=== PATIENT | male | born 1955 | race Caucasian/White ===

== ENCOUNTER 2020-04-23 00:37 | Emergency (ER) | payer OTHER, MEDICARE, SELFPAY ==
[2020-04-23 00:47] VITALS: BP 121/80; PULSE 85; RESP 18; TEMP 36.4; O2SAT 96; BMI 40.7
[2020-04-23 01:15] VITALS: RESP 18; O2SAT 97
[2020-04-23] MEDS: oxyCODONE-APAP 5-325 mg Tablet 2 TAB PO (01:15)
[2020-04-23 01:23] LABS: Basophils % 0.5 %; Eosinophils # 0.1 10^3/uL (0.0-0.8); Eosinophils % 1.5 %; Hematocrit 49.3 % (42.0-52.0); Hemoglobin 14.9 g/dL (11.7-16.6); Lymphocytes # 1.1 10^3/uL (0.8-4.8); Lymphocytes % 13.3 %; Mean Corpuscular HGB Conc 30.2 g/dL (30.0-36.0); Mean Corpuscular Hemoglobin 30.2 pg (28.0-34.0); Mean Corpuscular Volume 99.8 fL (80-94); Mean Platelet Volume 9.8 fL (7.4-10.4); Monocytes # 0.6 10^3/uL (0.2-0.9); Monocytes % 6.5 %; Neutrophils # 6.65 10^3/uL (1.8-7.7); Neutrophils % 77.8 %; Nucleated Red Blood Cells % 0 %; Platelet Count 230 10^3/cmm (130-400); Red Blood Count 4.94 10^6/uL (4.1-5.3); Red Cell Distribution Width 12.1 % (12.1-15.1); White Blood Count 8.6 10^3/uL (4.0-10.0)
[2020-04-23 01:25] VITALS: PULSE 84
--- NOTE | 2020-04-23 01:42 | XRR_ITS ---
PROCEDURE INFORMATION: Exam: XR Left Wrist Exam date and time: 04/23/2020 1:50 AM Age: 64 years old Clinical indication: Pain; Wrist; Left; Additional info: Left wrist pain TECHNIQUE: Imaging protocol: XR Left wrist. Views: 3 or more views. COMPARISON: No relevant prior studies available. FINDINGS: Bones/joints: Normal. Soft tissues: Tiny foreign bodies are seen in the soft tissues. XR/XR wrist LT min 3V* [id number] IMPRESSION: No acute findings.
[2020-04-23 01:46] VITALS: BP 126/85; PULSE 84; RESP 18; O2SAT 94
--- NOTE | 2020-04-23 02:00 | W.ED.EXTPRO ---
HPI - Extremity Problem General: Chief complaint: Extremity Problem,Nontraumatic Stated complaint: wrist pain Time Seen by Provider: 04/23/20 00:47 History of Present Illness: HPI Narrative: 64-year-old male with pain localized to the right wrist for the last 5 days or so. He says it began to hurt, and feel a bit tight or swollen, so he went to get a brace for it. That along with ice, heat, and [id number] medication has not helped much. Is progressively worsened. He was keeping him awake tonight. There is no history of injury. When asked if he has had any other joints do this to him in the past, he states only my toe . MD Complaint: joint swelling and joint pain Onset (ago): day(s) Pain Consistency: constant Location: left and other (Wrist) Quality: stabbing, aching and constant Radiation: none Relieving factors: immobilization Exacerbating factors: range of motion and weight bearing Associated symptoms: Deny chest pain, fever(s), myalgias, rash or short of breath Review of Systems Const: Denies: fever(s) Card: Denies: chest pain GI: Denies: abdominal pain, nausea or vomiting Skin/Breast: Denies: rash Neuro: Denies: numbness in extremities, weakness in extremities or sensory changes Physical Exam Const: COMMON NORMALS: no acute distress, patient oriented x3 and alert GENERAL APPEARANCE: cooperative ORIENTATION/CONSCIOUSNESS: Yes awake, Yes oriented to person, Yes oriented to place and Yes oriented to time Chest: COMMONS NORMALS: normal inspection of the chest Resp: COMMON NORMALS: normal respiratory effort, No retractions, No use of accessory muscles and clear to auscultation bilaterally AUSCULTATION: clear to auscultation bilaterally Cardio: COMMON NORMALS: regular rate, regular rhythm and No murmurs present (Cardio) RATE: regular rate RHYTHM: regular rhythm GI: COMMON NORMALS: Normal to inspection, nondistended, normoactive bowel sounds present Extremity: NARRATIVE EXTREMITY EXAM: Exam the left wrist reveals swelling with joint effusion, tenderness over the dorsum of the wrist joint diffusely. 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 Increased pain with range of motion. No third finger extension pain. Sensation is intact as is capillary refill Neuro: COMMON NORMALS: patient oriented x3 SENSORIUM/ORIENTATION: Yes alert, Yes oriented to person, Yes oriented to place and Yes oriented to time Course Vital Signs: Vital signs: Vital Signs Temperature 97.5 F L 04/23/20 00:47 Pulse Rate 86 04/23/20 03:55 Respiratory Rate 18 04/23/20 03:55 Blood Pressure 122/79 04/23/20 03:55 Pulse Oximetry 97 04/23/20 03:55 MDM - Extremity (Nontraumatic) MDM Narrative: Medical decision making narrative: CRP and sed rate are only minimally elevated. White blood cell count is 8.6. Other laboratory is benign. Wrist x-ray shows a couple of metallic tiny foreign bodies in the superior facial soft tissues with no acute bony or joint findings. The wrist is noncellulitic. The patient does have a history of gout . We will treat him for such, as this is likely an inflammatory arthritis based on clinical presentation. Lab Data: Labs: Lab Results 04/23/20 04/23/20 04/23/20 Range/Units 01:05 01:05 01:36 WBC 8.6 (4.0-10.0) 10^3/ uL RBC 4.94 (4.1-5.3) 10^6/u L Hgb 14.9 (11.7-16.6) g/dL Hct 49.3 (42.0-52.0) % MCV 99.8 H (80-94) fL MCH 30.2 (28.0-34.0) pg MCHC 30.2 (30.0-36.0) g/dL RDW 12.1 (12.1-15.1) % Plt Count 230 (130-400) 10^3/c mm MPV 9.8 (7.4-10.4) fL Neut % (Auto) 77.8 % Lymph % (Auto) 13.3 % [place] % (Auto) 6.5 % Eos % (Auto) 1.5 % Baso % (Auto) 0.5 % Neut # (Auto) 6.65 (1.8-7.7) 10^3/u L Lymph # (Auto) 1.1 (0.8-4.8) 10^3/u L [place] # (Auto) 0.6 (0.2-0.9) 10^3/u L Eos # (Auto) 0.1 (0.0-0.8) 10^3/u L Baso # (Auto) 0.0 (0.0-0.1) 10^3/u L Nucleated RBC % (a uto) 0 % Nucleated RBCs # 0.0 /100WBC ESR 15 H (0-10) mm/hr Sodium Cancelled Potassium Cancelled Chloride Cancelled Carbon Dioxide Cancelled Anion Gap Cancelled BUN Cancelled Creatinine Cancelled GFR Calculation Cancelled Glucose Cancelled Calculated Osmolal ity Cancelled Uric Acid Cancelled Calcium Cancelled Total Bilirubin Cancelled AST Cancelled ALT Cancelled Alkaline Phosphata se Cancelled C-Reactive Protein Cancelled Total Protein Cancelled Albumin Cancelled Globulin Cancelled 04/23/20 Range/Units 02:30 WBC (4.0-10.0) 10^3/ uL RBC (4.1-5.3) 10^6/u L Hgb (11.7-16.6) g/dL Hct (42.0-52.0) % MCV (80-94) fL MCH (28.0-34.0) pg MCHC (30.0-36.0) g/dL RDW (12.1-15.1) % Plt Count (130-400) 10^3/c mm MPV (7.4-10.4) fL Neut % (Auto) % Lymph % (Auto) % [place] % (Auto) % Eos % (Auto) % Baso % (Auto) % Neut # (Auto) (1.8-7.7) 10^3/u L Lymph # (Auto) (0.8-4.8) 10^3/u L [place] # (Auto) (0.2-0.9) 10^3/u L Eos # (Auto) (0.0-0.8) 10^3/u L Baso # (Auto) (0.0-0.1) 10^3/u L Nucleated RBC % (a uto) % Nucleated RBCs # /100WBC ESR (0-10) mm/hr Sodium 134 L Potassium 3.7 Chloride 97 L Carbon Dioxide 27 Anion Gap 13.7 BUN 21 Creatinine 1.0 GFR Calculation 75.0 L Glucose 223 H Calculated Osmolal ity 288 Uric Acid 6.7 Calcium 9.5 Total Bilirubin 0.4 AST 13 ALT 18 Alkaline Phosphata se 84 C-Reactive Protein 9.2 H Total Protein 7.2 Albumin 4.3 Globulin 2.9 Discharge Plan Discharge Patient Disposition: Home Clinical Impression: Arthritis of wrist, left Gout Qualifiers: Gout site: wrist Gout etiology: idiopathic Chronicity: acute Laterality: left Qualified Code(s): M10.032 - Idiopathic gout, left wrist Condition: Stable Prescriptions: [place] 5-325 mg tablet 1 tab PO Q6H Qty: 10 RF: 0 colchicine 0.6 mg capsule 0.6 mg PO BID Qty: 14 RF: 0 Discharge Orders: Discharge ED (Routine); Ordered 04/23/20 Ordered By: Juan David Mccartney Discharge Diet: Usual diet Discharge Activity: Increase activity as tolerated Patient Instructions: Acute Gouty Arthritis (ED) Activity Restrictions/Additional Instructions: Return for worsening pain despite treatment, significant numbness to the hands. Fever greater than 100, any other concerning symptoms. See your doctor in 4 to 5 days. Medication as directed. 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
[2020-04-23 02:31] LABS: Erythrocyte Sedimentation Rate 15 mm/hr (0-10)
[2020-04-23 03:03] VITALS: BP 122/79; O2SAT 97
[2020-04-23 03:13] LABS: Alanine Aminotransferase 18 U/L (0-41); Albumin Level 4.3 g/dL (3.5-5.2); Alkaline Phosphatase 84 IU/L (40-130); Anion Gap 13.7 (5-19); Aspartate Amino Transferase 13 U/L (0-40); Blood Urea Nitrogen 21 mg/dL (8-23); C Reactive Protein 9.2 mg/L (0.0-4.9); Calcium 9.5 mg/dL (8.5-10.5); Carbon Dioxide 27 mmol/L (22-29); Chloride 97 mmol/L (98-107); Globulin 2.9 g/dL (1.3-4.6); Glucose 223 mg/dL (65-115); Osmolality Calculated 288 mOsm/kg (285-295); Potassium 3.7 mmol/L (3.5-5.1); Sodium 134 mmol/L (136-145); Total Bilirubin 0.4 mg/dL (0.15-1.2); Total Protein 7.2 g/dL (6.6-8.7); Uric Acid 6.7 mg/dL (3.4-7.0)
[2020-04-23] MEDS: dexamethasone 4 mg Tablet 10 MG PO (03:54)
[2020-04-23 03:55] VITALS: BP 122/79; PULSE 86; RESP 18; O2SAT 97
== END 2020-04-23 03:50 | disposition home or self-care (01) ==
PROVIDERS: Emergency Provider Emergency Medicine
DX: M13.832 Other specified arthritis, left wrist (principal); M10.032 Idiopathic gout, left wrist
CPT/HCPCS: 12345; 36415; 73110; 80053; 84550; 85025; 85651; 86140; 99281; 99283; J8540

== ENCOUNTER 2021-09-07 09:39 | Outpatient (CLI) | payer MEDICARE, SELFPAY ==
--- NOTE | 2021-09-07 09:51 | CT_ITS ---
WS: [id number] CT ABDOMEN CONTRAST TECHNIQUE: Contrast enhanced CT of the abdomen with coronal and sagittal reformatted images. CLINICAL INFORMATION: ELEVATED AMYLASE LIPASE COMPARISON: None. DLP: 972.[address] scans at [facility] use at least one of these dose optimization techniques: automated e xposure control; mA and/or kV adjustment per patient size (includes targeted exams where dose is matc hed to clinical indication); or iterative reconstruction. FINDINGS: Lung bases are well aerated. Normal noncontrast liver. A few tiny low-attenuation lesions in the live r likely hepatic cysts but some too small to definitively characterize. Gallbladder appears normal. A drenal glands are normal. Normal renal parenchymal enhancement. No hydronephrosis. Bilateral renal cy sts largest in the LEFT measuring 2.6 CM. Both visualized ureters are decompressed. Fat-containing um bilical hernia. Normal caliber abdominal aorta. Mild aortic calcification. Pancreas is normal in appearance. No signi ficant surrounding inflammatory stranding or peripancreatic edema. Normal pancreatic duct. Moderate spondylitic changes lumbar spine with slight retrolisthesis L3 on L4. Disc space narrowing w orse at L3-L4 and L4-L5. Sigmoid diverticulosis. CT/CT abdomen w con* [id number] IMPRESSION: 1. Pancreatic parenchymal enhancement appears normal. No significant inflammat ory stranding or peripancreatic edema. 2. No peripancreatic fluid collections. 3. A few tiny hepatic cysts in the liver. 4. Bilateral renal cysts with normal renal parenchymal enhancement. No hydrone phrosis. Largest cyst in the LEFT measuring 2.6 cm. 5. Normal caliber abdominal aorta. Mild Aortic calcification. 6. Fat-containing umbilical hernia. 7. Partially visualized sigmoid diverticulosis.
[2021-09-07 10:26] LABS: Blood Urea Nitrogen 14 mg/dL (8-23)
[2021-09-07] MEDS: iohexol 350 mg/mL 100 mL Btl IV (10:29)
== END 2021-09-07 09:40 | disposition home or self-care (01) ==
LOC: RAD 09:41
PROVIDERS: Visit Provider Nurse Practitioner Family
DX: R74.8 Abnormal levels of other serum enzymes (principal); K76.89 Other specified diseases of liver; N28.1 Cyst of kidney, acquired; K42.9 Umbilical hernia without obstruction or gangrene; K57.90 Diverticulosis of intestine, part unspecified, without perforation or abscess without bleeding
CPT/HCPCS: 74160; 82565; 84520

== ENCOUNTER → 2021-09-20 09:59 | Outpatient (BNVA) | payer MEDICARE, SELFPAY | PROVIDERS: PCP Nurse Practitioner Family; Referring Provider Family Medicine; Visit Provider Surgery | DX: Z12.11 Encounter for screening for malignant neoplasm of colon (principal); K57.90 Diverticulosis of intestine, part unspecified, without perforation or abscess without bleeding | CPT/HCPCS: 99202 ==

== ENCOUNTER 2021-10-25 14:46 | Outpatient (CLI) | payer OTHER, MEDICARE, SELFPAY ==
--- NOTE | 2021-10-25 15:19 | XR_ITS ---
WS: [id number] XR knee LT 3V* [id number] REASON FOR EXAM: Left knee injury FINDINGS: Total left knee arthroplasty. Prosthetic components are in proper position and alignment. No fracture or other focal bone abnormality. No soft tissue abnormality. XR/XR knee LT 3V* [id number] IMPRESSION: Total left hip arthroplasty without acute abnormality.
== END 2021-10-25 14:47 | disposition home or self-care (01) ==
LOC: RAD 14:49
PROVIDERS: PCP Nurse Practitioner Family; Visit Provider Registered Nurse Neonatal Intensive Care
DX: S89.92XA Unspecified injury of left lower leg, initial encounter (principal)
CPT/HCPCS: 73562

== ENCOUNTER → 2021-11-13 13:52 | Outpatient (BNVA) | payer OTHER, SELFPAY | PROVIDERS: PCP Nurse Practitioner Family; Visit Provider Orthopaedic Surgery | DX: M25.562 Pain in left knee (principal); Z96.652 Presence of left artificial knee joint | CPT/HCPCS: 73560; 73565 ==

== ENCOUNTER 2022-07-16 11:44 | Outpatient (CLI) | payer MEDICARE, SELFPAY ==
--- NOTE | 2022-07-16 12:00 | XR_ITS ---
WS: [id number] EXAMINATION: XR chest 2V* [id number] REASON FOR EXAM: COUGH COMPARISON: None available. ORDER DATE: 07/16/2022 12:11 PM FINDINGS: The lungs are clear of infiltrate. Some perihilar peribronchial thickening bilaterally greater on t he right The cardiac and mediastinal outlines are unremarkable except for atherosclerotic aortic dougherty ge. There are no significant pleural effusions . No significant abnormalities are noted in the spine or remainder of the bony thorax. XR/XR chest 2V* [id number] IMPRESSION: PROBABLE BRONCHITIS WITH PERIBRONCHIAL CHANGES NOTED.
== END 2022-07-16 11:45 | disposition home or self-care (01) ==
PROVIDERS: PCP Nurse Practitioner Family; Visit Provider Nurse Practitioner Family
DX: R05.9 Cough, unspecified (principal)
CPT/HCPCS: 71046

== ENCOUNTER 2023-03-26 07:32 | Outpatient (CLI) | payer OTHER, SELFPAY ==
--- NOTE | 2023-03-26 07:45 | USCV_ITS ---
Carlos Simpson Age: 67 Gender: M : 1955 Exam Date: 03/26/2023 07:59 Ordering Phys: NOT ON FILE, DOCTOR XX Technologist: [place] [facility] [place] HISTORY: Diameter (cm) AP x Transverse x Length Velocity (cm/s) Waveform Prox Aorta: 2.00 x 2.64 x 88.80 Mid Aorta: 2.48 x 2.62 x 117.10 Distal Aorta: 2.48 x 2.36 x 94.20 Right Iliac Prox: 1.45 x 1.59 x 106.30 Left Iliac Prox: 1.46 x 1.64 x 70.60 Stent Prox Landing x x Aneurysmal Sac Max x x Lt Lat Sac Dim Rt Lat Sac Dim Stent Dist Landing x x Right Iliac Stent x x Left Iliac Stent x x Right Renal Art Left Renal Art FINDINGS: CONCLUSIONS No evidence of abdominal aortic or bilateral iliac aneurysm. Mild to moderate atheromatous disease Jose Hernandez MD (Electronically Signed) Final Date: 26 March 2023 10:26 S
== END 2023-03-26 07:33 | disposition home or self-care (01) ==
LOC: RAD 07:37
PROVIDERS: PCP Nurse Practitioner Family; Visit Provider Nurse Practitioner Family
DX: Z13.6 Encounter for screening for cardiovascular disorders (principal); I70.0 Atherosclerosis of aorta
CPT/HCPCS: 76706